=== PATIENT | female | born 1940 | race Caucasian/White ===

== ENCOUNTER → 2017-12-26 | Outpatient (CLI) | payer MEDICARE | END | disposition home or self-care (01) | LOC: RAH 13:11 | PROVIDERS: ATTEND Internal Medicine Endocrinology, Diabetes & Metabolism | DX: E04.2 Nontoxic multinodular goiter (principal) | CPT/HCPCS: 76536 ==

== ENCOUNTER → 2018-01-09 | Outpatient (CLI) | payer OTHER | END | disposition home or self-care (01) | LOC: OIH 14:07 | PROVIDERS: ATTEND Internal Medicine Cardiovascular Disease | DX: Z13.6 Encounter for screening for cardiovascular disorders (principal) | CPT/HCPCS: 75571 ==

== ENCOUNTER → 2018-12-27 | Outpatient (CLI) | payer MEDICARE, OTHER | END | disposition home or self-care (01) | LOC: RAH 12:54 | PROVIDERS: ATTEND Internal Medicine Endocrinology, Diabetes & Metabolism | DX: E04.2 Nontoxic multinodular goiter (principal) | CPT/HCPCS: 76536 ==

== ENCOUNTER → 2019-06-22 | Outpatient (CLI) | payer MEDICARE, OTHER | END | disposition home or self-care (01) | LOC: RAH 10:14 | PROVIDERS: ATTEND Internal Medicine Endocrinology, Diabetes & Metabolism | DX: E04.2 Nontoxic multinodular goiter (principal) | CPT/HCPCS: 76536 ==

== ENCOUNTER → 2020-06-24 | Outpatient (CLI) | payer MEDICARE, OTHER | END | disposition home or self-care (01) | LOC: RAH 11:17 | PROVIDERS: ATTEND Internal Medicine Endocrinology, Diabetes & Metabolism | DX: E04.2 Nontoxic multinodular goiter (principal) | CPT/HCPCS: 76536 ==

== ENCOUNTER → 2021-07-01 | Outpatient (CLI) | payer MEDICARE, OTHER | END | disposition home or self-care (01) | LOC: RAH 11:13 | PROVIDERS: ATTEND Internal Medicine Endocrinology, Diabetes & Metabolism | DX: E04.2 Nontoxic multinodular goiter (principal) | CPT/HCPCS: 76536 ==

== ENCOUNTER → 2023-07-29 | Outpatient (CLI) | payer MEDICARE, OTHER | END | disposition home or self-care (01) | LOC: RAH 10:39 | PROVIDERS: ATTEND Internal Medicine Endocrinology, Diabetes & Metabolism | DX: E04.2 Nontoxic multinodular goiter (principal) | CPT/HCPCS: 76536 ==

== ENCOUNTER → 2025-04-23 | Outpatient (CLI) | payer MEDICARE, OTHER ==
[~2025-04-23] MED LIST: IOHEXOL 350 MG/ML 100ML INFUS..BTL IV ONE
--- NOTE | 2025-04-23 14:28 | HMCIMG ---
hip series Comparison Findings: Anatomic alignment is maintained. There is no acute fracture or dislocation. The soft tissues are unremarkable. There are no erosive changes seen. Narrowing of the hip joint space is noted which suggest arthritis. Impression: No acute fracture or dislocation. Degenerative changes of the hip /[place]
--- NOTE | 2025-04-25 20:57 | CARDIOLOGY ---
RAD REPORT: CORNARY CT ANGIO RADIOLOGY REPORT: CORONARY CT ANGIOGRAPHY DATE: Apr 25, 2025 QUALITY: Excellent CLINICAL HISTORY AND INDICATION: [ chest pain ] TECHNIQUE: After obtaining a preliminary director of archives image, contrast imaging performed on an [employer] [id number] scanner. A dedicated, limited window, coronary imaging protocol was used, with single breath-hold, retrospective ECG gating, and automated arrhythmia rejection. 100 cc of low osmolar contrast agent: Omnipaque 350 was delivered via a 18-gauge IV catheter in the right antecubital fossa, using a power injector and followed by 60 cc of normal saline bolus as a chaser. Collimated images were reformatted at 0.5 mm intervals, and sent to an offline independent workstation for interpretation, using 3D anatomic reconstructions: Curved multiplanar reconstructions, maximum intensity projections, and multiplanar imaging. 7.5 mg IV metoprolol was administered prior to scanning. 0.8 mg SL nitroglycerin was given. CORONARY ARTERY DESCRIPTIONS: The coronary arteries arise in normal position. Left main coronary artery: Normal caliber vessel that bifurcates into the LAD and LCx. No stenosis. Left anterior descending coronary artery: Normal caliber vessel and gives rise to diagonal and septal branches. There is calcified plaque in the proximal D1 with 30-40% stenosis. Left circumflex coronary artery: Normal caliber, nondominant and gives rise to two large OM branches. There is calcified plaque in the proximal LCx with 30-40% stenosis. Right coronary artery: Large, dominant vessel giving rise to the PL and PDA branches. No stenosis. CAD-RADs: 2, mild non-obstructive CAD. Thoracic Aorta: Normal diameter. Maria Antonia Arguelles MD Cardiovascular Disease [facility] MARIA ANTONIA ARGUELLES MD Apr 25, 2025 20:57
== END | disposition home or self-care (01) ==
LOC: RAH 09:23
PROVIDERS: ATTEND Internal Medicine Cardiovascular Disease
DX: M16.12 Unilateral primary osteoarthritis, left hip (principal); M25.552 Pain in left hip; R06.02 Shortness of breath; I25.10 Atherosclerotic heart disease of native coronary artery without angina pectoris
CPT/HCPCS: 75574; 73502; J3490 ×2; Q9967

== ENCOUNTER → 2025-06-04 | Outpatient (CLI) | payer MEDICARE, OTHER ==
--- NOTE | 2025-06-05 02:43 | HMCIMG ---
STUDY: X-RAY OF THE LEFT HIP, 3 VIEWS HISTORY: Left hip pain. TECHNIQUE: Anteroposterior view of the pelvis and anteroposterior and frogleg lateral views of the left hip are submitted for interpretation. COMPARISON: Left hip radiographs (2???3 views) from 04/23 at 10:11 EDT. FINDINGS: Bones and joints: Bilateral pubic bones, iliac blades, and ischia appear normal. Bilateral acetabula, including the anterior and posterior columns, are intact without fracture. Bilateral femoral heads and necks are normally aligned without acute fracture. A marginal osteophyte is present along the greater trochanter of the right femur. No radiographic hip joint effusion is seen. LEFT HIP: Marked joint space narrowing of the left hip joint with small marginal osteophytes, subchondral sclerosis, subchondral cyst formation, and deformity of the femoral head and corresponding acetabulum, consistent with advanced osteoarthrosis. RIGHT HIP: Definite joint space narrowing with well-defined marginal osteophytes and subchondral sclerosis, most pronounced along the acetabular margin, compatible with osteoarthrosis. Sacrum and coccyx: Sacrum and coccyx are normal in alignment and mineralization. Posterior elements appear intact without fracture. Surrounding soft tissues are unremarkable. Soft tissues: Muscles and soft tissues around both hip joints are unremarkable without soft tissue gas or radiopaque foreign body. IMPRESSION: * Advanced osteoarthrosis of the left hip with marked joint space narrowing, osteophytes, subchondral sclerosis, subchondral cysts, and deformity of the femoral head and acetabulum. * Osteoarthrosis of the right hip with definite joint space narrowing, osteophyte formation, and subchondral sclerosis, most pronounced along the acetabular margin. * No acute fracture or dislocation identified in the pelvis or hips. * Compared with the left hip radiographs from 04/23 at 10:11 EDT, the bilateral hip osteoarthrosis appears radiographically stable without new acute osseous abnormality. /[place]
--- NOTE | 2025-06-05 02:43 | HMCIMG ---
STUDY: X-RAY OF THE LEFT FEMUR, 2 VIEWS HISTORY: Pain in the left leg. TECHNIQUE: Anteroposterior and lateral views of the left femur are submitted for interpretation. COMPARISON: None provided. FINDINGS: Bones and joints: No acute fracture or dislocation of the left femur is identified. Moderate osteoarthritic changes are present in the left hip joint with joint space narrowing and marginal osteophyte formation. Mild degenerative changes are seen in the left knee joint. No aggressive osseous lesion is demonstrated. Soft tissues: Visualized soft tissues are unremarkable without soft tissue gas or radiopaque foreign body. IMPRESSION: * Moderate osteoarthrosis of the left hip joint. * Mild degenerative changes of the left knee joint. * No acute fracture or dislocation of the left femur identified. /[place]
== END | disposition home or self-care (01) ==
LOC: RAH 10:33
PROVIDERS: ATTEND Internal Medicine Nephrology
DX: M17.12 Unilateral primary osteoarthritis, left knee (principal); M16.0 Bilateral primary osteoarthritis of hip; Z91.81 History of falling; M25.752 Osteophyte, left hip; M25.852 Other specified joint disorders, left hip; M25.851 Other specified joint disorders, right hip
CPT/HCPCS: 73502; 73552